=== PATIENT | female | born 1980 | race African-American/Black ===

== ENCOUNTER 2017-01-18 22:05 | Emergency (ER) | payer OTHER ==
[2017-01-18 22:13] VITALS: BP 108/65; PULSE 76; TEMP 97.9; BMI 26.8
[2017-01-18] MEDS ORDERED: TOBRAMYCIN 0.3% OPHTH SOLN 5 ML BOTTLE OU ONE (22:18)
--- NOTE | 2017-01-18 22:18 | PDOC ---
History of Present Illness - General Chief Complaint: Pain, Acute Stated Complaint: BODY ACHES Time Seen by Provider: 01/18/17 22:06 History Source: Patient Exam Limitations: No Limitations - History of Present Illness Initial Comments: 01/18/17 22:18 This is a 36-year-old female comes in complaining of 3 days now of body aches. Patient is denies any fevers but said she's been having some chills but takes her temperature and there is normal. Patient is afebrile here in the emergency room. In addition to that patient is complaining of a sore throat and bilateral conjunctivitis. Patient denies any rashes. Patient denies history of similar pains in the past. Patient said she does not go out has not had a tick bite does not have any pets that could've brought takes into the house and has been no time outdoors in wooded areas or in a yard. PAST MEDICAL HISTORY: no significant history PAST SURGICAL HISTORY: no significant history FAMILY HISTORY: no pertinant history SOCIAL HISTORY: Pt lives with family and is employed. MEDICATIONS: reviewed ALLERGIES: As per nursing notes Review of Systems General: No fevers or chills, no weakness, no weight loss HEENT: No change in vision. No sore throat,. No ear pain CardioVascular: No chest pain or shortness of breath Respiratory:No cough, or wheezing. Gastrointestinal: no nausea, vomitting, diarrhea or constipation, No rectal bleeding Genitourinary: No dysuria, hematuria, or frequency Musculoskeletal: No joint or muscle pain or swelling Neurologic: No headache, vertigo, dizziness or loss of consciousness Psychiatric: nor depression Skin: No rashes or easy bruising Endocrine: no increased thirst or abnormal weight change Allergic: no skin or latex allergy All other systems reviewed and normal Exam: General: Well-nourished well-developed individual, no acute distress HEENT: Throat: Normal, tonsils normal, there is some mild erythema of the posterior pharynx there is no exudate Neck: Supple, no meningeal signs, no lymphadenopathy Eyes::Pupils equal reactive and round, extraocular motion intact, there is some clear discharge bilateral with mild erythema bilateral. Left eye greater than right. Chest: Nontender to palpation Cardiac: S1-S2 normal, regular rate and rhythm, no murmurs rubs or gallops Respiratory: Lungs clear to auscultation bilateral Abdomen: Soft, nondistended, normal bowel sounds, nontender to palpation diffusely Extremities: Warm, dry, no cyanosis, clubbing, or edema Skin: No rashes Neuro: Alert and oriented x3, nonfocal exam, grossly intact, normal gait Psych: Normal mood and affect Assessment and plan: This is a 36-year-old female comes in with myalgias and bilateral conjunctivitis and a mild sore throat. Patient's symptoms are consistent with a viral etiology. Discussed with patient that it will likely run its course however she should follow-up with a primary care doctor if she's not better in several days. Past History - Past Medical History Allergies/Adverse Reactions: Allergies Allergy/AdvReac Type Severity Reaction Status Date / Time No Known Allergies Allergy Verified 01/18/17 22:07 Home Medications: Ambulatory Orders Multivitamin [Poly-Vitamin] 1 each PO DAILY 01/18/17 *DC/Admit/Observation/Transfer Diagnosis at time of Disposition: Myalgia Acute conjunctivitis, bilateral Qualifiers: Acute conjunctivitis type: unspecified Qualified Code(s): H10.33 - Unspecified acute conjunctivitis, bilateral - Discharge Dispostion Disposition: HOME Condition at time of disposition: Stable Admit: No - Patient Instructions Additional Instructions: For the ophthalmic drops in your eyes, 1 drop bilateral 4 times a day. If you need a primary care doctor call Dr. Price for an appointment. It may take a while to get an appointment. Tylenol or Motrin as needed for the body aches. Return to the emergency department immediately with ANY new, persistent or worsening symptoms. Continue any medications as previously prescribed by your physician. You should follow up with your primary doctor as soon as possible regarding today's emergency department visit. . Please make sure your doctor reviews the results of your emergency evaluation. Thank you for coming to the Emergency Department today for your care. It was a pleasure to see you today. Please note that your evaluation is INCOMPLETE until you follow-up with your doctor.
== END 2017-01-18 22:26 | disposition home or self-care (01) ==
LOC: FER 22:05
DX: H10.33 Unspecified acute conjunctivitis, bilateral (principal); M79.1 Myalgia
CPT/HCPCS: 99281-25